=== PATIENT | female | born 1990 | race Caucasian/White ===

== ENCOUNTER 2017-06-03 19:38 | Emergency (ER) | payer OTHER | END 2017-06-03 20:13 | disposition home or self-care (01) | LOC: ER 19:38 | DX: S90.561A Insect bite (nonvenomous), right ankle, initial encounter (principal); L03.115 Cellulitis of right lower limb; F12.10 Cannabis abuse, uncomplicated; W57.XXXA Bitten or stung by nonvenomous insect and other nonvenomous arthropods, initial encounter; Y93.89 Activity, other specified; Y99.8 Other external cause status; Y92.89 Other specified places as the place of occurrence of the external cause | CPT/HCPCS: 99283 ==